=== PATIENT | male | born 1950 | race Two or more races ===

== ENCOUNTER 2018-09-15 13:58 | Inpatient (IN) | payer OTHER ==
[~2018-09-15] VITALS: Ht 170.2 cm; Wt 86.6 kg
[2018-09-25] MEDS ORDERED: LIPITOR40 MG PO (11:41)
[2018-09-25] MEDS ORDERED: [UNRECOGNIZED DRUG - OTHER] PO (11:41)
[2018-09-25] MEDS ORDERED: COZAAR100 MG PO (11:41)
[2018-09-25] MEDS ORDERED: PLAVIX75 MG PO (11:42)
[2018-09-25] MEDS ORDERED: ZYLOPRIM300 MG PO (11:42)
[2018-10-01] MEDS ORDERED: CARDIZEM CD240 MG PO (08:07)
== END 2018-10-03 16:03 | disposition home or self-care (01) | DRG 330 ==
LOC: O/R 09-30 05:30 → SURG 09-30 05:30 → SURH 09-30 11:00 → SURG 09-30 15:23 → SURH 09-30 15:30 → SURG 10-03 16:03
PROVIDERS: ADMIT Colon & Rectal Surgery
PROC: 0DJD8ZZ Inspection of Lower Intestinal Tract, Via Natural or Artificial Opening Endoscopic (ICD-10-PCS; 2018-09-30)
PROC: 0DQ84ZZ Repair Small Intestine, Percutaneous Endoscopic Approach (ICD-10-PCS; 2018-09-30)
PROC: 0DTN4ZZ Resection of Sigmoid Colon, Percutaneous Endoscopic Approach (ICD-10-PCS; principal; 2018-09-30 15:30)
DX: K57.32 Diverticulitis of large intestine without perforation or abscess without bleeding (principal); K91.72 Accidental puncture and laceration of a digestive system organ or structure during other procedure; K92.1 Melena; K66.0 Peritoneal adhesions (postprocedural) (postinfection); I10 Essential (primary) hypertension; I25.10 Atherosclerotic heart disease of native coronary artery without angina pectoris

== ENCOUNTER 2018-10-03 23:58 | Emergency (ER) | payer OTHER ==
[~2018-10-03] VITALS: Ht 170.2 cm; Wt 83.0 kg
[~2018-10-03 23:58] MED LIST: CARDIZEM CD240 MG PO; COZAAR100 MG PO; LIPITOR40 MG PO; PLAVIX75 MG PO; ZYLOPRIM300 MG PO; [UNRECOGNIZED DRUG - OTHER] PO
== END 2018-10-04 13:52 | disposition home or self-care (01) ==
LOC: ER 23:58
DX: T83.83XA Hemorrhage due to genitourinary prosthetic devices, implants and grafts, initial encounter (principal)

== ENCOUNTER 2019-08-21 06:05 | Day surgery (SDC) | payer OTHER | END 2019-08-21 10:17 | disposition home or self-care (01) | LOC: AMB-ENDOS 06:05 → ADM 14:00 → AMB-ENDOS 14:00 | DX: K57.32 Diverticulitis of large intestine without perforation or abscess without bleeding (principal); K64.1 Second degree hemorrhoids ==